=== PATIENT | female | born 1980 | race Caucasian/White ===

== ENCOUNTER → 2023-09-25 | Outpatient (CLI) | payer BC | END | disposition home or self-care (01) | LOC: RAD 13:33 | PROVIDERS: ATTEND Orthopaedic Surgery | DX: S96.812A Strain of other specified muscles and tendons at ankle and foot level, left foot, initial encounter (principal); S93.492A Sprain of other ligament of left ankle, initial encounter; M25.372 Other instability, left ankle; M25.462 Effusion, left knee; X58.XXXA Exposure to other specified factors, initial encounter; Y93.89 Activity, other specified; Y92.89 Other specified places as the place of occurrence of the external cause; Y99.8 Other external cause status | CPT/HCPCS: 73721 ==